=== PATIENT | female | born 1945 | race Caucasian/White ===

== ENCOUNTER 2022-03-07 14:20 | Inpatient (IN) | payer MEDICARE ==
[2022-03-07] MEDS ORDERED: Acetaminophen 325 MG TAB PO PRN (16:02)
[2022-03-07] MEDS ORDERED: Ondansetron ODT 4 MG TAB PO PRN (16:02)
[2022-03-07] MEDS ORDERED: Ondansetron PF 4 MG/2 ML Vial IVP PRN (16:02)
[2022-03-07] MEDS ORDERED: Dextrose 50% Abboject 50 ML SYRINGE SLOW IVP PRN (16:04)
[2022-03-07] MEDS ORDERED: HumaLOG 300 UNITS/3 ML VIAL SC PRN (16:04)
[2022-03-07] MEDS ORDERED: Dextrose 5% in Water 1,000 ML IV PRN (16:04)
[2022-03-07] MEDS ORDERED: hydrALAZINE 20 MG/ML VIAL SLOW IVP PRN (16:09)
[2022-03-07] MEDS ORDERED: Diltiazem 125 MG in Sodium Chloride 0.9% 100 ML IVPB SCH (16:30)
[2022-03-07 17:15] LABS: CKMB 2.2 ng/mL (0-6.6)
[2022-03-07 17:41] VITALS: BMI 43.7
[2022-03-07] MEDS ORDERED: Rosuvastatin 20 MG TAB PO SCH (21:00)
[2022-03-07] MEDS: Potassium Chloride 20 MEQ TAB PO SCH (21:48)
[2022-03-07] MEDS: Gabapentin 300 MG CAP PO SCH (21:48)
[2022-03-07] MEDS: Nystatin Powder 15 GM BOT TOP SCH (21:49)
[2022-03-08 04:59] LABS: #Basophils 0.1 10x3/uL (0.0-0.2); #Eosinphils 0.1 10x3/uL (0.0-0.5); #Monocytes 0.8 10x3/uL (0.0-1.1); %Basophils 0.8 % (0.0-2.0); %Eosinophils 1.4 % (0.0-6.0); %Lymphocytes 23.8 % (18.0-47.0); %Neutrophils 61.7 % (40.0-75.0); Hemoglobin 11.8 g/dL (12.0-15.5); Mean Corpuscular HGB CONC 29.6 g/dL (32.0-36.0); Mean Corpuscular Hemoglobin 25.7 pg (27.0-33.0); Mean Corpuscular Volume 86.9 fl (81.6-98.3); Mean Platelet Volume 11.1 fl (7.4-10.4); Platelet Count 249 10x3/uL (150-450); RBC Distribution Width 18.3 % (11.5-14.5); Red Blood Cell (RBC) Count 4.59 10x6/uL (3.90-5.03); White Blood Cell (WBC) Count 6.4 10x3/uL (3.5-10.5)
[2022-03-08 05:20] LABS: Anion Gap 18 mmol/L (10-20); BUN (Urea Nitrogen) 20 mg/dL (9.8-20.1); Calc. Creatinine Clearance 56 mL/min (70-130); Calcium 8.9 mg/dL (7.8-10.44); Carbon Dioxide 26 mmol/L (23-31); Cardiac Risk 5.4 (Less than 4.5); Chloride 104 mmol/L (98-107); Cholesterol 156 mg/dl (< 200 Desired); Glucose 119 mg/dL (83-110); HDL Cholesterol 29 mg/dL (>60 Neg Risk); LDL Cholesterol, Calculated 105 mg/dL; Magnesium 2.1 mg/dL (1.6-2.6); Potassium 4.7 mmol/L (3.5-5.1); Sodium 143 mmol/L (136-145); Triglycerides 110 mg/dL (Less than 150)
[2022-03-08 05:51] LABS: SARS-CoV-2 NAA Rapid Test Not Detected (NotDetected)
[2022-03-08 06:34] LABS: Anisocytosis SLIGHT = 6-15 cells (100X) (0-5/hpf); Hypochromia MODERATE=16-30 cells (100X) (0-5/hpf); Ovalocytes SLIGHT = 2-5 cells (100X) (0-1/hpf); Platelet Morphology Comment Appears Adequate; Poikilocytosis SLIGHT = 6-15 cells (100X) (0-5/hpf)
[2022-03-08] MEDS ORDERED: Furosemide 40 MG/4 ML VIAL SLOW IVP SCH (09:00)
[2022-03-08] MEDS ORDERED: Rivaroxaban 10 MG TAB PO SCH (09:00)
[2022-03-08] MEDS ORDERED: Lisinopril 20 MG TAB PO SCH (09:00)
[2022-03-08] MEDS: Gabapentin 300 MG CAP PO SCH (09:55)
[2022-03-08] MEDS: Potassium Chloride 20 MEQ TAB PO SCH (09:55)
[2022-03-08] MEDS: Nystatin Powder 15 GM BOT TOP SCH (09:56)
[2022-03-08] MEDS: HumaLOG 300 UNITS/3 ML VIAL SC PRN ×2 (11:55→16:40)
[2022-03-08 13:28] LABS: Hemoglobin A1c 7.7 % (4.0-6.0)
[2022-03-08 16:37] VITALS: BP 116/83; TEMP 98.1
[2022-03-08 19:01] LABS: Bilirubin Neg (Negative); Blood, Urine 10 (Negative); Clarity Clear (Clear); Glucose, Urine (Dipstick) Normal (Negative); Ketone, Urine Negative (Negative); Leukocyte Negative (Negative); Nitrite Negative (Negative); Protein, Urine (Dipstick) 30 mg/dl (Neg-Trace); Urobilinogen Normal mg/dL (Less than 2)
[2022-03-08 19:05] LABS: Urine Culture Reflex No No
[2022-03-08 19:09] LABS: Bacteria/HPF None Seen HPF (None Seen); RBC/HPF None Seen HPF (0-3); Squamous Epithelial None Seen HPF (0-3); WBC/HPF None Seen HPF (0-3)
[2022-03-09] MEDS ORDERED: Rivaroxaban 15 MG TAB PO SCH (09:00)
[2022-03-14] MEDS ORDERED: Non-Formulary Medication 1 EACH (Dulaglutide [Trulicity] 0.75 MG/0.5 ML Pen.Injctr) SQ SCH (09:00)
== END 2022-03-08 19:05 | disposition home or self-care (01) | DRG 309 ==
LOC: CSHTELE 14:20
PROVIDERS: ADMIT Hospitalist; ATTEND Hospitalist
DX: I48.21 Permanent atrial fibrillation (principal); E66.2 Morbid (severe) obesity with alveolar hypoventilation; Z68.41 Body mass index [BMI] 40.0-44.9, adult; I13.0 Hypertensive heart and chronic kidney disease with heart failure and stage 1 through stage 4 chronic kidney disease, or unspecified chronic kidney disease; R07.89 Other chest pain; I50.9 Heart failure, unspecified; E11.22 Type 2 diabetes mellitus with diabetic chronic kidney disease; N18.9 Chronic kidney disease, unspecified; G89.29 Other chronic pain; M54.50 Low back pain, unspecified; E78.5 Hyperlipidemia, unspecified; J44.9 Chronic obstructive pulmonary disease, unspecified; I45.10 Unspecified right bundle-branch block; E11.65 Type 2 diabetes mellitus with hyperglycemia; R09.02 Hypoxemia; R53.1 Weakness; Z20.822 Contact with and (suspected) exposure to COVID-19; Z88.8 Allergy status to other drugs, medicaments and biological substances; Z79.84 Long term (current) use of oral hypoglycemic drugs; Z87.891 Personal history of nicotine dependence; Z88.5 Allergy status to narcotic agent; Z79.899 Other long term (current) drug therapy; Z79.01 Long term (current) use of anticoagulants; Z87.440 Personal history of urinary (tract) infections; Z98.890 Other specified postprocedural states; Z80.1 Family history of malignant neoplasm of trachea, bronchus and lung; Z84.89 Family history of other specified conditions
CPT/HCPCS: 36415; 36416; 80048; 80061; 81001; 83036; 83735; 84443; 85025; 93005; 93010; 93306; 94760; 97139; J1815; J1940; U0002